=== PATIENT | female | born 1995 | race Caucasian/White ===

== ENCOUNTER 2021-12-29 08:21 | Observation (INO) | payer MEDICAID ==
[~2021-12-29] VITALS: Ht 157.5 cm; Wt 78.9 kg
[~2021-12-29 08:21] MED LIST: ATOM40CA6 PO; DICY10 PO; DIVA500T52 PO; FAMO20TA8 PO; PNV1TABL17 PO; POLY17PO4 PO; TRAZ-187 PO; ZIPR40CA24 PO
[2021-12-29 08:39] LABS: HCG,QUALITATIVE URINE NEGATIVE (NEGATIVE)
[2021-12-29 08:40] LABS: APPEARANCE,URINE CLEAR (CLEAR); BILIRUBIN,URINE SMALL (NEGATIVE); COLOR,URINE YELLOW (YELLOW); GLUCOSE, URINE (UA) NEGATIVE (NEGATIVE); KETONES,URINE NEGATIVE (NEGATIVE); LEUKOCYTE ESTERASE ,URINE NEGATIVE (NEGATIVE); NITRATE,URINE NEGATIVE (NEGATIVE); OCCULT BLOOD,URINE MODERATE (NEGATIVE); PROTEIN,URINE NEGATIVE (NEGATIVE); UROBILINOGEN,URINE 0.2 mg/dL (0.2-1.0)
[2021-12-29 08:46] LABS: CREATININE 0.7 mg/dL (0.5-1.5); POTASSIUM 4.3 mmol/L (3.5-5.1)
[2021-12-29 08:47] LABS: ALBUMIN 3.7 g/dL (3.5-5.0); BACTERIA,URINE Rare /HPF (None Seen); MUCUS,URINE Few LPF (None Seen); RBC,URINE 0-1 /HPF (0-1); SQUAMOUS EPITHELIAL CELL,UR Rare /HPF (0-2); TOTAL PROTEIN, SERUM 7.5 g/dL (6.0-8.3); WBC,URINE 0-1 /HPF (0-1)
[2021-12-29 09:00] LABS: BASOPHILS % (AUTO) 0.8 % (0.0-5.0); EOSINOPHILS % (AUTO) 0.6 % (0.0-8.0); MEAN CORPUSCULAR HEMOGLOBIN 32.1 pg (27.0-33.0); MEAN CORPUSCULAR HGB CONC 35.3 g/dL (32.0-36.0); MEAN CORPUSCULAR VOLUME 91.1 fL (79-99); MONOCYTES % (AUTO) 4.6 % (3.0-13.0); NEUTROPHILS % (AUTO) 73.7 % (40.0-77.0); PLATELET COUNT (AUTO) 269 K/uL (130-400); RED BLOOD CELL COUNT(AUTO) 4.39 MIL/uL (4.00-5.50); RED CELL DISTRIBUTION WIDTH 11.6 % (11.0-15.5); WHITE BLOOD COUNT (AUTO) 6.5 K/uL (4.8-10.8)
[2021-12-29] MEDS ORDERED: ONDANSETRON 4MG INJ IVP ONE (09:00)
[2021-12-29] MEDS ORDERED: KETOROLAC 30MG VIAL (30MG/ML) IVP ONE (09:00)
[2021-12-29] MEDS ORDERED: 0.9%NACL 1000ML 1,000 ML IV ONE (09:00)
[2021-12-29] MEDS ORDERED: LIDOCAINE HCL 2% VISCOUS 15 ML UDCUP PO ONE (09:00)
[2021-12-29] MEDS ORDERED: MAG/ALUM/SIMETH 30 ML UDCUP PO ONE (09:00)
[2021-12-29] MEDS ORDERED: DICYCLOMINE HCL 10 MG/5 ML ML PO ONE (09:00)
[2021-12-29] MEDS ORDERED: PANTOPRAZOLE 40 MG/VIAL IVP ONE (09:00)
[2021-12-29] MEDS: 0.9%NACL 1000ML 1,000 ML IV SCH ×2 (12:44→20:31)
[2021-12-29] MEDS ORDERED: ONDANSETRON 4MG INJ IV PRN (13:00)
[2021-12-29] MEDS ORDERED: ACETAMINOPHEN 325 MG TAB PO PRN ×2 (13:00)
[2021-12-29 13:27] LABS: AMPHET/METH SCREEN,URINE NEGATIVE (NEGATIVE); BARBITURATE SCREEN, URINE NEGATIVE (NEGATIVE); BENZODIAZEPINES SCREEN,URINE NEGATIVE (NEGATIVE); CANNABINOID SCREEN,URINE POSITIVE (NEGATIVE); COCAINE SCREEN,URINE NEGATIVE (NEGATIVE); PHENCYCLIDINE SCREEN,URINE NEGATIVE (NEGATIVE)
[2021-12-29] MEDS ORDERED: FERROUS SULFATE PO (14:02)
[2021-12-29] MEDS ORDERED: GALLBLADDER FORMULA (14:02)
[2021-12-29] MEDS: FAMOTIDINE 20MG VIAL IV SCH (20:31)
[2021-12-29 21:24] VITALS: BP 138/77
[2021-12-29] MEDS ORDERED: FAMO-136 PO (23:02)
[2021-12-30 00:32] VITALS: BP 118/73
[2021-12-30 04:07] VITALS: BP 104/65
[2021-12-30] MEDS: 0.9%NACL 1000ML 1,000 ML IV SCH (04:15)
[2021-12-30 05:31] LABS: HEMATOCRIT 34.5 % (36-48); MEAN CORPUSCULAR HGB CONC 35.4 g/dL (32.0-36.0); MEAN CORPUSCULAR VOLUME 90.6 fL (79-99); RED BLOOD CELL COUNT(AUTO) 3.81 MIL/uL (4.00-5.50); RED CELL DISTRIBUTION WIDTH 11.4 % (11.0-15.5); WHITE BLOOD COUNT (AUTO) 5.3 K/uL (4.8-10.8)
[2021-12-30 05:52] LABS: BILIRUBIN,DIRECT 0.1 mg/dL (0.0-0.3); CREATININE 0.6 mg/dL (0.5-1.5); POTASSIUM 4.3 mmol/L (3.5-5.1); TOTAL PROTEIN, SERUM 6.1 g/dL (6.0-8.3)
[2021-12-30 07:27] VITALS: BP 138/58
[2021-12-30] MEDS: FAMOTIDINE 20MG VIAL IV SCH (09:14)
== END 2021-12-30 10:00 | disposition home or self-care (01) ==
LOC: EDH 08:21 → EDHIP 08:22 → 3BH 21:13
PROVIDERS: ADMIT Hospitalist; ATTEND Hospitalist
DX: K85.90 Acute pancreatitis without necrosis or infection, unspecified (principal); K80.20 Calculus of gallbladder without cholecystitis without obstruction; R74.01 Elevation of levels of liver transaminase levels; F17.210 Nicotine dependence, cigarettes, uncomplicated; K21.9 Gastro-esophageal reflux disease without esophagitis; F90.9 Attention-deficit hyperactivity disorder, unspecified type; E66.9 Obesity, unspecified; G47.00 Insomnia, unspecified; F31.9 Bipolar disorder, unspecified; Z79.899 Other long term (current) drug therapy
CPT/HCPCS: 96374; 96361 ×2; 96375; 99284; 80053; 80305; 83690 ×2; 85025; 81001; 81025; 36415 ×2; 76705; 80076; 80048; 85027; G0378 ×21; S0028 ×2; J7030 ×2; J2405; J1885; S0164; C9113; J3490

== ENCOUNTER 2022-03-09 09:09 | Emergency (ER) | payer MEDICAID ==
[~2022-03-09] VITALS: Ht 157.5 cm; Wt 78.0 kg
[~2022-03-09 09:09] MED LIST changes: +FAMO-136 PO; -FAMO20TA8 PO; +FERROUS SULFATE PO; +GALLBLADDER FORMULA; -PNV1TABL17 PO
[2022-03-09] MEDS ORDERED: OSEL75 PO (10:29)
[2022-03-09] MEDS ORDERED: IBUP-2070 PO (10:29)
[2022-03-09] MEDS ORDERED: D-ME118S47 PO (10:29)
[2022-03-09] MEDS ORDERED: ACETAMINOPHEN 500 MG TABLET PO ONE (10:30)
[2022-03-09] MEDS ORDERED: GUAIFENESIN-DM 200/20 MG 10 ML PO ONE (10:30)
[2022-03-09 10:44] VITALS: BP 132/78
== END 2022-03-09 10:48 | disposition home or self-care (01) ==
LOC: EDH 09:09
DX: J10.1 Influenza due to other identified influenza virus with other respiratory manifestations (principal); Z20.822 Contact with and (suspected) exposure to COVID-19; F41.9 Anxiety disorder, unspecified; G47.00 Insomnia, unspecified; J45.909 Unspecified asthma, uncomplicated; E66.9 Obesity, unspecified; F17.200 Nicotine dependence, unspecified, uncomplicated; Z79.1 Long term (current) use of non-steroidal anti-inflammatories (NSAID)
CPT/HCPCS: 99283; 87635; 87804 ×2; C9803